=== PATIENT | female | born 1975 | race Caucasian/White ===

== ENCOUNTER 2019-11-05 09:24 | Emergency (ER) | payer BC ==
[~2019-11-05] VITALS: Ht 175.3 cm; Wt 90.7 kg
[2019-11-05 09:38] VITALS: BP_SYST 119
--- NOTE | 2019-11-05 09:44 | NUR ---
Patient to ER bed 8 to gown for evaluation. Side rails up. Report given to Suni LARA.
--- NOTE | 2019-11-05 09:51 | NUR ---
Patient to ER bed 3 to gown for evaluation. Side rails up.
--- NOTE | 2019-11-05 09:52 | NUR ---
Patient is awake, alert, and oriented x4. Patient is complaining of lower back pain since yesterday with no relief from flerxeril or motrin. Patient denies any other symptoms at this time.
--- NOTE | 2019-11-05 09:52 | NUR ---
TYRONE Montes De Oca at bedside examining patient.
[2019-11-05] MEDS ORDERED: KETOROLAC TROMETHAMINE 30 MG VIAL IM ONE (10:00)
[2019-11-05 10:10] VITALS: BP_SYST 119
--- NOTE | 2019-11-05 10:10 | NUR ---
Patient given written and verbal discharge instructions and verbalizes understanding. ER MD discussed with patient the results and treatment provided. Patient in stable condition. ID arm band removed. Rx of tramadol given. Patient educated on pain management and to follow up with PMD. Pain Scale 9/10, Dr. Montes De Oca is aware. Opportunity for questions provided and answered. Medication side effect fact sheet provided.
== END 2019-11-05 10:10 | disposition home or self-care (01) ==
LOC: SED 09:24
DX: M54.5 Low back pain (principal); Z79.891 Long term (current) use of opiate analgesic
CPT/HCPCS: 96372; 99283; J1885